=== PATIENT | male | born 1985 | race Caucasian/White ===

== ENCOUNTER 2021-06-02 19:45 | Emergency (ER) | payer OTHER, SELFPAY ==
--- NOTE | ~2021-06-02 | CT_ITS ---
EXAMINATION: CT ANGIOGRAM OF CHEST AND CT ABDOMEN PELVIS CLINICAL INFORMATION: Severe chest pain with question of abdominal viscus perforation COMPARISON: Chest radiograph 06/02/2021 TECHNIQUE: Multidetector volumetric imaging was performed from the thoracic inlet through the pubic symphysis following administration of 82 mL of Omnipaque 350. Sagittal and coronal reformatted images were obtained on the technologist's workstation. In addition, 2-D coronal and sagittal reformatted images and axial 3-D maximum intensity projection MIP images are generated on the CT workstation. This CT examination was performed using dose optimization techniques as appropriate, variously including the following: *Automated exposure control *Adjustment of mA and/or kV according to patient size (this includes techniques or standardized protocols for targeted exams where dose is matched to indication/reason for exam; i.e. extremities or head) *Use of iterative reconstruction technique DLP: 1501 mGy-cm FINDINGS: CHEST: Vascular: The thoracic aorta appears normal. Considerable motion artifact is present obscuring detail at the aortic root a three-vessel branching pattern of the arch is seen with patent great vessels. Although not carried out for evaluation of the pulmonary arteries and pulmonary veins, no significant abnormality is seen. The visualized upper portion of the abdominal aorta including the celiac SMA and bilateral renal arteries appear unremarkable.. Lung: Some mosaic groundglass change is seen. No worrisome nodules or lung masses are seen. Mediastinum: There is pneumomediastinum present with air surrounding the esophagus extending into the mesentery around the stomach with pneumatosis. Air extends all the way up into the lower neck. No mediastinal or hilar lymphadenopathy is seen. Pericardium/Pleura: No significant effusion. No pleural mass or thickening. Chest Wall/Axilla: Unremarkable ABDOMEN/PELVIS: Peritoneal Space: No significant free air or free fluid identified. Liver, Gallbladder, Biliary Tree: The liver is normal in size, shape, and attenuation. No focal hepatic lesion or biliary ductal dilatation is present. There is one tiny lucency with thin the left lobe of the liver which is linear and could represent a tiny amount of air in a portal vein from the patient's esophageal tear (14:24). The gallbladder is unremarkable with no evidence of radiopaque gallstones, gallbladder wall thickening, or obvious pericholecystic inflammatory changes. Pancreas: Unremarkable Spleen: Unremarkable Adrenal Glands: Unremarkable Kidneys and Ureters: The kidneys are normal in size, shape, and attenuation. No hydronephrosis, hydroureter, or calculi seen. No perinephric stranding. Bladder: Unremarkable Gastrointestinal Tract: The small and large bowel are unremarkable. The appendix is unremarkable. Abdominal Wall: No significant hernia is appreciated. Lymph Nodes: No lymphadenopathy. Vascular: The aorta appears normal.. The IVC appears unremarkable. PELVIC VISCERA: Prostate and seminal vesicles appear normal. A tiny amount of free fluid is present in the pelvis. OSSEUS STRUCTURES: Mild degenerative changes are noted in the lower thoracic spine. No bony destructive lesions are seen. CT/CT abdomen pelvis w con IMPRESSION: 1. No evidence of aortic dissection or pulmonary emboli 2. Probable esophageal perforation and extensive pneumomediastinum with pneumatosis around the esophagus and proximal gastric wall. Question of tiny amount of air within a small portal vein branch related to the patient's trauma. This critical result was discussed with Dr. Cuenca at 1:00 AM on the day the exam and it was ascertained that the content and urgency of the report was understood at the time of direct communication.
--- NOTE | ~2021-06-02 | XR_ITS ---
EXAMINATION: XR CHEST CLINICAL INFORMATION: Chest pain COMPARISON: 09/13/2010 TECHNIQUE: Frontal view of the chest was obtained. FINDINGS: Aside from hypoexpanded lungs, no significant abnormality is noted involving the heart, lungs, mediastinum, bony thorax or soft tissues. XR/XR chest 1V IMPRESSION: No acute intrathoracic disease.
--- NOTE | ~2021-06-02 | CT_ITS ---
EXAMINATION: CT CHEST WITHOUT CONTRAST CLINICAL INFORMATION: Gastrografin used to evaluate esophageal perforation COMPARISON: 06/02/2021 TECHNIQUE: Multidetector volumetric CT imaging of the chest was done. PO Gastrografin contrast was administered. Axial MIP volume rendering provided. Sagittal and coronal reformatted images were obtained. This CT examination was performed using dose optimization techniques as appropriate, variously including the following: *Automated exposure control *Adjustment of mA and/or kV according to patient size (this includes techniques or standardized protocols for targeted exams where dose is matched to indication/reason for exam; i.e. extremities or head) *Use of iterative reconstruction technique DLP: 437 mGy-cm FINDINGS: LUNGS: Limited evaluation due to respiratory motion artifact. Mosaic attenuation appearance of the lungs favors heterogeneous air trapping. Mild areas of superimposed groundglass opacity may also be present in the left lung from nonspecific inflammation. MEDIASTINUM: The visualized thyroid gland is unremarkable. Redemonstrated pneumomediastinum with gas near the esophagus, predominantly distally. There is suggestion of mild contrast extravasation to the right of the distal esophagus with some hyperdensity such as on image 337/562, though this is difficult to definitively diagnose in the setting of motion artifact. Cardiac size is within normal limits; no pericardial effusion. PLEURA: Trace right pleural effusion. No pneumothorax. AXILLA: No lymphadenopathy. UPPER ABDOMEN: Oral contrast material is present in the stomach. Free air is seen along the proximal to mid aspect of the stomach, similar to prior. OSSEOUS STRUCTURES: Multilevel degenerative endplate osteophytes are present in the lower thoracic spine. CT/CT chest wo con IMPRESSION: 1. Redemonstrated pneumomediastinum with largest volume of gas near the distal esophagus. There is suggestion of a small amount contrast extravasation to the right of the distal esophagus, though definitive diagnosis is limited due to motion artifact in this region. 2. Redemonstrated gas along the stomach, similar to recent prior 3. Trace right pleural effusion. This critical result was discussed with on 06/03/2021 2:12 AM, and it was ascertained that the content and urgency of the report was understood at the time of direct communication.
--- NOTE | 2021-06-02 19:50 | ECG_ITS ---
Test Reason : CHEST PAIN Blood Pressure : / mmHG Vent. Rate : 051 BPM Atrial Rate : 051 BPM P-R Int : 170 ms QRS Dur : 106 ms QT Int : 428 ms P-R-T Axes : 024 -07 014 degrees QTc Int : 394 ms Sinus bradycardia RSR' or QR pattern in V1 suggests right ventricular conduction delay Moderate voltage criteria for LVH, may be normal variant Borderline ECG When compared with ECG of 13-SEP-2010 16:23, Vent. rate has decreased BY 54 BPM T wave inversion now evident in Inferior leads QT has shortened Referred By: Generic ED Physician Electronically Signed By:TREVOR LACEY
--- NOTE | 2021-06-02 20:06 | PC.NURSE ---
Labs and EKG obtained in Triage. Awaiting CXR.
[2021-06-02 20:12] VITALS: BP 140/73; PULSE 71; RESP 20; TEMP 36.8; O2SAT 100; BMI 41.5
[2021-06-02 20:15] LABS: MANUAL DIFF FLAG NO
[2021-06-02 20:20] LABS: Basophils Absolute Auto 0.1 X10*3/uL (0.0-0.2); Basophils Percent Auto 0.5 % (0-2); Eosinophils Absolute Auto 0.6 X10*3/uL (0.0-0.4); Eosinophils Percent Auto 4.4 % (0-4); Hematocrit 43.3 % (42-52); Hemoglobin 14.6 g/dl (14.0-18.0); Imm Gran Abs Auto 0.02 X10*3/uL (0.00-0.03); Imm Gran Pct Auto 0.2 % (0.0-0.4); Lymphocytes Absolute Auto 3.2 X10*3/uL (1.2-4.9); Lymphocytes Percent Auto 25.6 % (20-40); Mean Corpuscular HGB Conc 33.7 g/dl (31.0-36.0); Mean Corpuscular Hemoglobin 29.5 pg (27.0-33.0); Mean Corpuscular Volume 87.5 fL (80-98); Mean Platelet Volume 10.1 fL (9.4-12.4); Monocytes Absolute Auto 0.6 X10*3/uL (0.1-1.2); Neutrophils Absolute Auto 8.1 X10*3/uL (2.0-8.3); Neutrophils Percent Auto 64.3 % (45-73); Platelet Count 448 X10*3/uL (160-400); Red Blood Count 4.95 X10*6/uL (4.60-5.80); Red Cell Distribution Width 12.2 % (11.0-16.0); White Blood Count 12.5 X10*3/uL (4.8-10.8)
[2021-06-02 20:32] LABS: Anion Gap 14 (12-20); Blood Urea Nitrogen 10 mg/dL (9-16); Calcium 9.9 mg/dL (8.4-10.2); Carbon Dioxide 26 mmol/L (22-29); Chloride 105 mmol/L (96-108); Creatinine Clr Calc Pharmacy 126.1; Estimated Glomerular Filt Rate > 60; Glucose Random 105 mg/dL (60-115); Potassium 3.9 mmol/L (3.3-5.1); Sodium 141 mmol/L (135-145)
[2021-06-02 20:38] LABS: Troponin-I High Sensitivity < 3.5 ng/L (<3.5-35.0)
--- NOTE | 2021-06-02 21:48 | ED_ITS ---
HPI - Chest Pain General Chief Complaint: Chest Pain Stated Complaint: cp Time Seen by Provider: 06/02/21 21:43 Source: patient Mode of arrival: ambulatory Limitations: no limitations History of Present Illness MD complaint: other (chest pain , forceful vomiting) Onset (ago): hour(s) (couple) Timing of current episode: episodic Prior episodes: No Onset: after eating (ate a hot dog) Pain location: other (sternal ) Pain radiation: none Severity: severe Quality: tightness and burning Relieving factors: nothing Exacerbating factors: eating Context: other (started after eating a hot dog, felt tightness in his chest then vomited forcefully afterwards noted blood in emesis afterwards which is improving, no AC therpy) Associated symptoms: nausea and vomiting Treatment prior to arrival: none Related Data Allergies Allergy/AdvReac Type Severity Reaction Status Date / Time No Known Allergies Allergy Unverified 06/02/21 20:17 Review of Systems Review of Systems: Constitutional : No Weight loss, No Fever, No Chills ENT/Mouth : No sore throat, No Rhinorrhea Eyes: No Eye Pain, No Swelling Cardiovascular : pos Chest Pain, no SOB, no Dyspnea on Exertion, No Orthopnea, No Edema, No Palpitations Respiratory : No Cough, No Sputum Gastrointestinal : pos Nausea, pos Vomiting, No Diarrhea, No abdominal Pain, No Hematochezia, No Melena, pos hematemesis Genitourinary : No Dysuria, No Urinary Frequency Musculoskeletal : No joint pain, No Myalgias, No Joint Swelling Skin : No Skin Lesions, No rash Neuro : No Weakness, No Numbness, No Dizziness, No Headache Psych : No Anxiety/Panic, No Depression Heme/Lymph: No Bruising, No Lymphadenopathy Endocrine : No Polyuria, No Polydipsia All other systems reviewed and are negative [facility] Past Medical History Attestation statement: The following information was validated with the patient. Medical History Asthma GERD (gastroesophageal reflux disease) Social History Social History (Updated 06/02/21 @ 22:15 by Monalisa Cuenca DO) Patient Tobacco Use Status: Never used Tobacco Use of substances other than those prescribed or required for medical reasons: No Advance Directives: No Advance Directives Information Provided: No Physical Exam Vital Signs: Vital Signs: Last Vital Signs Temp 97.8 F 06/02/21 21:59 Pulse 111 H 06/03/21 01:58 Resp 16 06/03/21 01:58 BP 140/87 H 06/02/21 23:31 Pulse Ox 98 06/02/21 23:31 Body Mass Index 41.5 Appearance: Alert. Oriented X3. No acute distress. Eyes: Pupils equal, round and reactive to light. ENT: Pharynx normal. Neck: Normal inspection. Neck supple. CVS: Normal heart rate and rhythm. Pulses normal. Respiratory: No respiratory distress. Breath sounds normal. Abdomen: Soft and nontender. Emesis in the bag - scant blood noted in clear emesis Skin: Skin warm and dry. Normal skin color. Normal skin turgor. Extremities: No lower extremity edema. No calf ttp Neuro: Oriented X 3. No motor deficit. No sensory deficit. Course Course Course Narrative: still c/o pain which seems to be worse - CT scans for perforation ordered, IV dilaudid for pain free air seen on CT Scan - IV zosyn ordered infection suspected at 2308 repeat IV morphine ordered 1255am - ?esophageal perforation, extensive pneumomediastinum call to 1257 - [facility] thoracic call back 127am - needs to speak to thoracic surgery , needs swallow study CT scan with oral contrast (gastrograffin), add on vancomycin and fluconazole message sent to thoracic 154am regarding images being done RN notes we only have 200mg doses of diflucan - 2 separate doses of 200mg ordered to get full dose 400mg 211am Radiology - ?extravasation distal esophagus on lower right side - more suspicious for perforation there, lower R side esophagus 211am message sent to radiology to update with radiology input 225am signed out to Dr. Cortés pending thoracic input MDM - Chest Pain MDM Narrative Medical decision making narrative: 36 yo male with hx of GERD here with chest pain that is burning after eating a hot dog then proceeded to have a forceful emesis followed by hematemesis that is improving - labs, EKG, CXR no pneumomediastinum seen, IV protonix, pain medications, zofran - possibly food bolus impaction resolved but then given forceful wretching had kofi krishnan tear - he does not take NSAIDs regularly, no AC therapy, dispo per result and findings. Lab Data Result diagrams: 06/02/21 20:11 06/02/21 20:11 Labs: Lab Results 06/02/21 06/02/21 06/02/21 Range/Units 20:11 20:11 20:11 WBC 12.5 H (4.8-10.8) X10*3/uL RBC 4.95 (4.60-5.80) X10*6/uL Hgb 14.6 (14.0-18.0) g/dl Hct 43.3 (42-52) % MCV 87.5 (80-98) fL MCH 29.5 (27.0-33.0) pg MCHC 33.7 (31.0-36.0) g/dl RDW 12.2 (11.0-16.0) % Plt Count 448 H (160-400) X10*3/uL MPV 10.1 (9.4-12.4) fL Immature Gran % (Auto) 0.2 (0.0-0.4) % Neut % (Auto) 64.3 (45-73) % Lymph % (Auto) 25.6 (20-40) % [place] % (Auto) 5.0 (2-11) % Eos % (Auto) 4.4 H (0-4) % Baso % (Auto) 0.5 (0-2) % Lymph # (Auto) 3.2 (1.2-4.9) X10*3/uL [place] # (Auto) 0.6 (0.1-1.2) X10*3/uL Eos # (Auto) 0.6 H (0.0-0.4) X10*3/uL Baso # (Auto) 0.1 (0.0-0.2) X10*3/uL Abs Immat Gran (auto) 0.02 (0.00-0.03) X10*3/uL Absolute Neuts (auto) 8.1 (2.0-8.3) X10*3/uL Absolute Nucleated RBC 0.000 (0.0-0.012) X10*3/uL Nucleated RBC % (auto) 0.0 (0.0-0.2) /100WBC Sodium 141 (135-145) mmol/L Potassium 3.9 (3.3-5.1) mmol/L Chloride 105 (96-108) mmol/L Carbon Dioxide 26 (22-29) mmol/L Anion Gap 14 (12-20) BUN 10 (9-16) mg/dL Creatinine 0.96 (0.5-1.4) mg/dL Estim Creat Clear Calc 126.1 Estimated GFR > 60 Random Glucose 105 (60-115) mg/dL Lactic Acid (0.5-2.0) mmol/L Calcium 9.9 (8.4-10.2) mg/dL Magnesium 2.1 (1.6-2.6) mg/dL Total Bilirubin 0.3 (0.0-1.0) mg/dL Direct Bilirubin 0.2 (0.0-0.5) mg/dL AST 24 (5-37) U/L ALT 26 (0-40) U/L Alkaline Phosphatase 87 (39-117) U/L Troponin I High Sens < 3.5 (<3.5-35.0) ng/L Total Protein 7.4 (6.5-8.0) g/dL Albumin 4.8 (3.5-5.0) g/dL Lipase 11 (8-78) U/L Gastric Occult Blood (NEG) COVID-19 ([place]) (Negative) COVID-19 Clin Com 06/02/21 06/02/21 06/03/21 Range/Units 22:11 22:11 00:56 WBC (4.8-10.8) X10*3/uL RBC (4.60-5.80) X10*6/uL Hgb (14.0-18.0) g/dl Hct (42-52) % MCV (80-98) fL MCH (27.0-33.0) pg MCHC (31.0-36.0) g/dl RDW (11.0-16.0) % Plt Count (160-400) X10*3/uL MPV (9.4-12.4) fL Immature Gran % (Auto) (0.0-0.4) % Neut % (Auto) (45-73) % Lymph % (Auto) (20-40) % [place] % (Auto) (2-11) % Eos % (Auto) (0-4) % Baso % (Auto) (0-2) % Lymph # (Auto) (1.2-4.9) X10*3/uL [place] # (Auto) (0.1-1.2) X10*3/uL Eos # (Auto) (0.0-0.4) X10*3/uL Baso # (Auto) (0.0-0.2) X10*3/uL Abs Immat Gran (auto) (0.00-0.03) X10*3/uL Absolute Neuts (auto) (2.0-8.3) X10*3/uL Absolute Nucleated RBC (0.0-0.012) X10*3/uL Nucleated RBC % (auto) (0.0-0.2) /100WBC Sodium (135-145) mmol/L Potassium (3.3-5.1) mmol/L Chloride (96-108) mmol/L Carbon Dioxide (22-29) mmol/L Anion Gap (12-20) BUN (9-16) mg/dL Creatinine (0.5-1.4) mg/dL Estim Creat Clear Calc Estimated GFR Random Glucose (60-115) mg/dL Lactic Acid 1.1 (0.5-2.0) mmol/L Calcium (8.4-10.2) mg/dL Magnesium (1.6-2.6) mg/dL Total Bilirubin (0.0-1.0) mg/dL Direct Bilirubin (0.0-0.5) mg/dL AST (5-37) U/L ALT (0-40) U/L Alkaline Phosphatase (39-117) U/L Troponin I High Sens (<3.5-35.0) ng/L Total Protein (6.5-8.0) g/dL Albumin (3.5-5.0) g/dL Lipase (8-78) U/L Gastric Occult Blood POS (NEG) COVID-19 ([place]) Negative (Negative) COVID-19 Clin Com See Note ECG Data ECG #1: Attestation: I personally reviewed and interpreted this ECG as follows: ECG interpretation date: 06/02/21 ECG interpretation time: 21:48 Interpretation: Rate: 51 Rhythm: sinus bradycardia [place]: normal Normal P waves. Normal REBA. incomplete RBBB ST T wave : no SUDHA< inverted in III, qTC: normal prior studies: no sig change The study has been interpreted contemporaneously by me. . Critical Care Time Critical Care Time Critical Care Time: Yes Total Critical Care Time: 90 Attestation: 3L of IVF, medical consult, transfer, reassessments, discussions with radiology, repeat multiple doses of IV pain medications I attest to this time spent taking care of the patient Discharge Plan Discharge Clinical Impression: Pneumomediastinum, Esophageal perforation Chest pain Qualifiers: Chest pain type: unspecified Qualified Code(s): R07.9 - Chest pain, unspecified Vomiting Qualifiers: Vomiting type: unspecified Vomiting Intractability: non-intractable Nausea presence: with nausea Qualified Code(s): R11.2 - Nausea with vomiting, unspec ified Leukocytosis Qualifiers: Leukocytosis type: unspecified Qualified Code(s): D72.829 - Elevated white blood cell count, unspecified
[2021-06-02 21:59] VITALS: BP 147/91; PULSE 85; RESP 20; TEMP 36.6; O2SAT 97
[2021-06-02 22:19] LABS: Alanine Aminotransferase 26 U/L (0-40); Albumin Level 4.8 g/dL (3.5-5.0); Alkaline Phosphatase 87 U/L (39-117); Aspartate Amino Transferase 24 U/L (5-37); Bilirubin Direct 0.2 mg/dL (0.0-0.5); Bilirubin Total 0.3 mg/dL (0.0-1.0); Lipase 11 U/L (8-78); Total Protein 7.4 g/dL (6.5-8.0)
[2021-06-02 22:23] LABS: Magnesium 2.1 mg/dL (1.6-2.6)
[2021-06-02] MEDS: 0.9 % Sodium Chloride 1,000 ML 999 ML IVCONT (22:24)
[2021-06-02 22:25] LABS: GASOB Int Neg Ctl Valid YES; GASOB Int Pos Ctl Valid YES; Occult Blood Gastric POS (NEG)
[2021-06-02 22:26] LABS: Lactic Acid 1.1 mmol/L (0.5-2.0)
[2021-06-02] MEDS: ondansetron HCL 4 MG/2 ML VIAL IVPUSH (22:29)
[2021-06-02 22:30] VITALS: RESP 16
[2021-06-02] MEDS: Morphine Sulfate 4 MG/ML CARTRIDGE IVPUSH (22:30)
[2021-06-02] MEDS: Pantoprazole Sodium 40 MG/10 ML VIAL IVPUSH (22:33)
[2021-06-02 23:29] VITALS: RESP 16
[2021-06-02] MEDS: HYDROmorphone HCl 0.5 MG/0.5 ML SYRINGE IVPUSH (23:29)
[2021-06-02 23:31] VITALS: BP 140/87; PULSE 108; RESP 16; O2SAT 98
[2021-06-02 23:38] VITALS: PULSE 119; RESP 20
[2021-06-03] VITALS (8 sets, daily range): BP systolic 144; BP diastolic 93; PULSE 105–116; RESP 16; O2SAT 96
[2021-06-03] MEDS: iohexoL 350 MG/ML 100 ML INFUS..BTL 85 ML IV (00:18)
[2021-06-03] MEDS: LORazepam 2 MG/ML VIAL 1 MG IVPUSH (00:26)
[2021-06-03] MEDS: 0.9 % Sodium Chloride 1,000 ML 999 ML IV ×2 (00:29→01:58)
[2021-06-03] MEDS: Morphine Sulfate 4 MG/ML CARTRIDGE IVPUSH ×3 (00:57→04:23)
[2021-06-03] MEDS: Piperacillin Sodium/Tazobactam 3.375 GM in 0.9 % Sodium Chloride 50 ML IV (01:01)
[2021-06-03 01:20] LABS: COVID-19 Test Negative (Negative); IDNOW Serial# 9DD0AD1C
[2021-06-03] MEDS: vancomycin HCL 1,500 MG in 0.9 % Sodium Chloride 500 ML 333.33 MG IV (01:56)
[2021-06-03] MEDS: Diatrizoate Meglumine, Sodium 30 ML SOLUTION PO (01:57)
--- NOTE | 2021-06-03 02:02 | PC.NURSE ---
Fluconazole IV not available in pyxis, global search revealed medication is not available in facility. Charge nurse contacting building and grounds supervisor regarding medication. aware.
--- NOTE | 2021-06-03 02:15 | PC.NURSE ---
provider changing order to [id number] fluconazole IV as 400mg is not available in facility.
--- NOTE | 2021-06-03 03:00 | PC.NURSE ---
second IV inserted by Marlene VELAZCO Fluconazole infusing per MAR through second IV MD aware
[2021-06-03] MEDS: Fluconazole in NaCl,Iso-Osm 200 MG/100 ML PIGGYBACK 100 MG IV ×2 (03:05→04:11)
[2021-06-03 03:41] LABS: INTERNATIONAL NORM RATIO 1.1 (0.9-1.1); Prothrombin Time 12.2 SEC (9.9-13.0)
[2021-06-03 03:43] LABS: Partial Thromboplastin Time 35.6 SEC (24.1-38.0)
--- NOTE | 2021-06-03 03:47 | P.CONAN_ITS ---
HPI - Anesthesia Eval Consult details Narrative: Pneumomediastinum, upper abdominal pain PMFSH Active Problems Active Problems: All Active Problems (Updated 06/03/21 @ 02:19 by Monalisa Cuenca DO) Chest pain (Acute) Pneumomediastinum (Acute) Vomiting (Acute) Leukocytosis (Acute) Esophageal perforation (Acute) Past Medical History Medical History Asthma GERD (gastroesophageal reflux disease) Social History Social History (Updated 06/02/21 @ 22:15 by Monalisa Cuenca DO) Patient Tobacco Use Status: Never used Tobacco Use of substances other than those prescribed or required for medical reasons: No Advance Directives: No Advance Directives Information Provided: No Meds Allergies Allergy/AdvReac Type Severity Reaction Status Date / Time No Known Allergies Allergy Unverified 06/02/21 20:17 Active Medications: Current Medications Pharmacy Consult (Consult Rx Vancomycin Dosing) 1 each MISCELLANE DAILY PRN PRN Reason: Consult order Exam Exam Date and Time: June 03, [id number] Height,Weight and Vital Signs: Height 5 ft 5 in Weight 113.398 kg Last Vital Signs Temp 97.8 F 06/02/21 21:59 Pulse 110 H 06/03/21 03:35 Resp 16 06/03/21 03:35 BP 144/93 H 06/03/21 03:35 Pulse Ox 96 06/03/21 03:35 Pertinent Lab Results Pertinent Lab Results: Laboratory Tests 06/02/21 06/02/21 06/02/21 20:11 20:11 20:11 WBC 12.5 H RBC 4.95 Hgb 14.6 Hct 43.3 MCV 87.5 MCH 29.5 MCHC 33.7 RDW 12.2 Plt Count 448 H MPV 10.1 Immature Gran % (Auto) 0.2 Neut % (Auto) 64.3 Lymph % (Auto) 25.6 [place] % (Auto) 5.0 Eos % (Auto) 4.4 H Baso % (Auto) 0.5 Lymph # (Auto) 3.2 [place] # (Auto) 0.6 Eos # (Auto) 0.6 H Baso # (Auto) 0.1 Abs Immat Gran (auto) 0.02 Absolute Neuts (auto) 8.1 Absolute Nucleated RBC 0.000 Nucleated RBC % (auto) 0.0 Sodium 141 Potassium 3.9 Chloride 105 Carbon Dioxide 26 Anion Gap 14 BUN 10 Creatinine 0.96 Estim Creat Clear Calc 126.1 Estimated GFR > 60 Random Glucose 105 Lactic Acid Calcium 9.9 Magnesium 2.1 Total Bilirubin 0.3 Direct Bilirubin 0.2 AST 24 ALT 26 Alkaline Phosphatase 87 Troponin I High Sens < 3.5 Total Protein 7.4 Albumin 4.8 Lipase 11 Gastric Occult Blood COVID-19 ([facility]) COVID-19 Clin Com Blood Type Antibody Screen 06/02/21 06/02/21 06/03/21 22:11 22:11 00:56 WBC RBC Hgb Hct MCV MCH MCHC RDW Plt Count MPV Immature Gran % (Auto) Neut % (Auto) Lymph % (Auto) [place] % (Auto) Eos % (Auto) Baso % (Auto) Lymph # (Auto) [place] # (Auto) Eos # (Auto) Baso # (Auto) Abs Immat Gran (auto) Absolute Neuts (auto) Absolute Nucleated RBC Nucleated RBC % (auto) Sodium Potassium Chloride Carbon Dioxide Anion Gap BUN Creatinine Estim Creat Clear Calc Estimated GFR Random Glucose Lactic Acid 1.1 Calcium Magnesium Total Bilirubin Direct Bilirubin AST ALT Alkaline Phosphatase Troponin I High Sens Total Protein Albumin Lipase Gastric Occult Blood POS COVID-19 ([place]) Negative COVID-19 Clin Com See Note Blood Type Antibody Screen 06/03/21 02:35 WBC RBC Hgb Hct MCV MCH MCHC RDW Plt Count MPV Immature Gran % (Auto) Neut % (Auto) Lymph % (Auto) [place] % (Auto) Eos % (Auto) Baso % (Auto) Lymph # (Auto) [place] # (Auto) Eos # (Auto) Baso # (Auto) Abs Immat Gran (auto) Absolute Neuts (auto) Absolute Nucleated RBC Nucleated RBC % (auto) Sodium Potassium Chloride Carbon Dioxide Anion Gap BUN Creatinine Estim Creat Clear Calc Estimated GFR Random Glucose Lactic Acid Calcium Magnesium Total Bilirubin Direct Bilirubin AST ALT Alkaline Phosphatase Troponin I High Sens Total Protein Albumin Lipase Gastric Occult Blood COVID-19 ([facility]) COVID-19 Clin Com Blood Type O Positive Antibody Screen NEGATIVE
--- NOTE | 2021-06-03 04:49 | PC.NURSE ---
nurse to nurse report given to Wily VELAZCO at [facility] ICU
--- NOTE | 2021-06-03 04:53 | PC.NURSE ---
@[phone] [facility] CALLED BY DR HO FOR TRANSFER TO [facility] ICU FOR THIS PT @ [id number] CALL PLACED TO [facility] FOR ALS, EMERGENT LIGHTS/SIRENS TRANSFER FOR THIS PT @ ND TIFF MADELIN REQUEST PAULETTE TAKES THIS REQUEST
--- NOTE | 2021-06-03 05:05 | PC.NURSE ---
@[phone] [facility] CALL FOR E[facility] OF [facility] BOOKED 20 MINUTES AGO FOR THIS PT TO GO TO [facility] ICU PAULETTE ANSWERS SAYS LESS THAN 5 MINUTES
--- NOTE | 2021-06-03 05:23 | PC.NURSE ---
[facility] ARRIVES @ THIS TIME FOR THIS TX FOR LIGHTS AND SIRENS TRANSFER TO [facility]
--- NOTE | 2021-06-03 05:27 | PC.NURSE ---
[facility] @ THIS TIME WITH THIS PT
== END 2021-06-03 05:27 | disposition short-term general hospital (02) ==
PROVIDERS: Emergency Medicine; Physician Assistant; Emergency Provider Internal Medicine; PCP Internal Medicine
DX: J98.2 Interstitial emphysema (principal); K22.3 Perforation of esophagus; R07.9 Chest pain, unspecified; R11.2 Nausea with vomiting, unspecified; D72.829 Elevated white blood cell count, unspecified; Z20.822 Contact with and (suspected) exposure to COVID-19; Z79.899 Other long term (current) drug therapy
CPT/HCPCS: 36415; 71045; 71250; 71275; 74177; 80048; 80076; 82271; 83605; 83690; 83735; 84484; 85025; 85610; 85730; 86850; 86900; 86901; 87040; 87635; 93005; 96361; 96365; 96367; 96375; 96376; 99285; 99291; J0330; J1170; J1450; J2060; J2270; J2405; J2543; J3010; J3370; Q9967